=== PATIENT | male | born 1970 | race Caucasian/White ===

== ENCOUNTER → 2023-07-16 | Outpatient (CLI) | LOC: M SOG 07:57 | PROVIDERS: ATTEND Physician Assistant | DX: M25.541 Pain in joints of right hand (principal) ==

== ENCOUNTER 2023-09-10 06:36 | Day surgery (SDC) | payer BC ==
[~2023-09-10] VITALS: Ht 182.9 cm; Wt 114.3 kg
[~2023-09-10 06:36] MED LIST: EZET10TA21 PO; FARX1TAB3 PO; FOLI1TAB11 PO; GLYB5TAB6 PO; LISI20TA33 PO; MULT-110 PO; ROSU40TA63 PO; ZOLO100T PO
[2023-09-10] MEDS ORDERED: LIDOCAINE 2% 100MG/5ML SDV (FOR ANES.) As Ordered ONE (08:31)
[2023-09-10] MEDS ORDERED: fentaNYL 100 MCG/2 ML INJECTION As Ordered ONE (08:31)
[2023-09-10] MEDS ORDERED: KETOROLAC 60MG 2ML VIAL As Ordered ONE (08:31)
[2023-09-10] MEDS ORDERED: MIDAZOLAM INJ 2MG/2ML VIAL As Ordered ONE (08:31)
[2023-09-10] MEDS ORDERED: ONDANSETRON 4MG 2ML VIAL As Ordered ONE (08:31)
[2023-09-10] MEDS ORDERED: ACETAMINOPHEN 1000MG 100ML IV BAG As Ordered ONE (08:31)
[2023-09-10] MEDS ORDERED: propofoL 200 MG/20 ML VIAL As Ordered ONE (08:31)
[2023-09-10] MEDS: ceFAZolin 2 GM/D5W 50 ML IV BAG As Ordered ONE (09:00)
[2023-09-10] MEDS ORDERED: ceFAZolin SOD 2 GM in IV 1 EA IV ONE (09:15)
[2023-09-10] MEDS ORDERED: HYDROmorphone HCL 2MG/ML 1ML VIAL As Ordered ONE (09:23)
[2023-09-10] MEDS: BACITRACIN OINTMENT 30GM TUBE As Ordered ONE (10:31)
[2023-09-10] MEDS ORDERED: LR 1,000 ML IV SCH (10:55)
[2023-09-10] MEDS ORDERED: fentaNYL 100 MCG/2 ML INJECTION IV PRN (10:55)
[2023-09-10] MEDS ORDERED: ONDANSETRON 4MG 2ML VIAL IV PRN (10:55)
[2023-09-10] MEDS ORDERED: PERC5TAB12 PO (11:04)
[2023-09-10] MEDS: oxyCODONE 5MG TAB PO PRN (11:50)
[2023-09-10 12:44] VITALS: BP 142/80; TEMP 97.2; O2SAT 95
== END 2023-09-10 12:48 | disposition home or self-care (01) ==
LOC: M SDC 06:36
PROVIDERS: ATTEND Orthopaedic Surgery Hand Surgery
DX: M72.0 Palmar fascial fibromatosis [Dupuytren] (principal); E11.9 Type 2 diabetes mellitus without complications; G47.9 Sleep disorder, unspecified; R06.83 Snoring; I10 Essential (primary) hypertension; E78.00 Pure hypercholesterolemia, unspecified; M54.9 Dorsalgia, unspecified; Z88.8 Allergy status to other drugs, medicaments and biological substances; Z79.899 Other long term (current) drug therapy
CPT/HCPCS: 26045; 26123; 88304; J0131; J0665; J0690; J1170; J1885; J2250; J2405; J3010